=== PATIENT | female | born 1940 | race Hispanic/Latino ===

== ENCOUNTER 2017-01-18 17:41 | Emergency (ER) | payer MEDICARE ==
[2017-01-18 17:54] VITALS: BP 130/79
[2017-01-18] MEDS ORDERED: XOPENEX IH ONE (17:54)
[2017-01-18] MEDS ORDERED: DELTASONE PO ONE (17:54)
--- NOTE | 2017-01-18 17:57 | Emergency Department Report ---
- General Chief Complaint: Upper Respiratory Infection Stated Complaint: COUGH Time Seen by Provider: 01/18/17 17:57 Source: patient Mode of arrival: Ambulatory Limitations: No Limitations - History of Present Illness Initial Comments: Patient reports a dry cough that started two weeks ago with aggravation the last two nights while trying to sleep. Patient has tried OTC Mucinex-DM, however to no avail MD Complaint: cough Onset/Timin -: week(s) Severity: mild Severity scale (0 -10): 0 Quality: other (none) Consistency: constant Improves With: nothing Worsens With: deep breaths Context: other (none) Associated Symptoms: denies other symptoms, cough. denies: fever, chills, myalgias, diaphoresis, headache, rhinorrhea, nasal congestion, sore throat, stiff neck, chest pain, shortness of breath, abdominal pain, nausea, vomiting, diarrhea, dysuria, rash, confusion, right sweats, weight loss, epistaxis, hoarseness, ear pain Treatments Prior to Arrival: "cold medicine" - Related Data Previous Rx's Medication Instructions Recorded Last Taken Type Albuterol Sulfate [Ventolin HFA] 2 puff IH Q4H PRN #1 hfa.aer.ad 01/18/17 Unknown Rx guaiFENesin/CODEINE [Robitussin AC] 5 ml PO QHS PRN #100 oral.liqd 01/18/17 Unknown Rx predniSONE [Deltasone] 20 mg PO QDAY #5 tab 01/18/17 Unknown Rx Allergies Allergy/AdvReac Type Severity Reaction Status Date / Time No Known Allergies Allergy Unverified 01/18/17 17:44 ED Review of Systems ROS: Stated complaint: COUGH Other details as noted in HPI Constitutional: denies: chills, diaphoresis, fever, malaise, weakness ENT: denies: ear pain, throat pain Respiratory: cough. denies: orthopnea, shortness of breath, SOB with exertion, SOB at rest, stridor, wheezing Cardiovascular: denies: chest pain, palpitations, dyspnea on exertion, orthopnea , edema, syncope, paroxysmal nocturnal dyspnea Gastrointestinal: denies: abdominal pain, nausea, vomiting, diarrhea, constipation Musculoskeletal: denies: back pain, joint swelling, arthralgia Neurological: denies: headache, weakness, numbness, paresthesias Psychiatric: denies: anxiety, depression ED Past Medical Hx - Past Medical History Previous Medical History?: No Additional medical history: Hepatitis C from [id number], Hx. of bleeding ulcers and had a blood transfusion - Surgical History Past Surgical History?: Yes Additional Surgical History: Peng cataract surgery, Right facial/cheek bone surgery, Tonsilectomy, - Social History Smoking Status: Never Smoker Substance Use Type: Other - Medications Home Medications: Home Medications Medication Instructions Recorded Confirmed Last Taken Type Albuterol Sulfate [Ventolin HFA] 2 puff IH Q4H PRN #1 hfa.aer.ad 01/18/17 Unknown Rx guaiFENesin/CODEINE [Robitussin AC] 5 ml PO QHS PRN #100 oral.liqd 01/18/17 Unknown Rx predniSONE [Deltasone] 20 mg PO QDAY #5 tab 01/18/17 Unknown Rx ED Physical Exam - General Limitations: No Limitations General appearance: alert, in no apparent distress - Head Head exam: Present: atraumatic, normocephalic, normal inspection - Eye Eye exam: Present: normal appearance, PERRL, EOMI Pupils: Present: normal accommodation - ENT ENT exam: Present: normal exam, normal orophraynx, mucous membranes moist. Absent: mucous membranes dry - Neck Neck exam: Present: normal inspection, full ROM. Absent: tenderness, meningismus, lymphadenopathy, thyromegaly - Respiratory Respiratory exam: Present: wheezes. Absent: respiratory distress, rales, rhonchi, stridor, chest wall tenderness, accessory muscle use, decreased breath sounds, prolonged expiratory - Cardiovascular Cardiovascular Exam: Present: tachycardia, normal heart sounds. Absent: systolic murmur, diastolic murmur, rubs, gallop - Extremities Exam Extremities exam: Present: normal inspection, full ROM, normal capillary refill. Absent: tenderness, pedal edema, joint swelling, calf tenderness - Back Exam Back exam: Present: normal inspection, full ROM. Absent: tenderness, CVA tenderness (R), CVA tenderness (L), muscle spasm, paraspinal tenderness, vertebral tenderness - Neurological Exam Neurological exam: Present: alert, oriented X3, CN II-XII intact, normal gait, reflexes normal. Absent: motor sensory deficit - Psychiatric Psychiatric exam: Present: normal affect, normal mood - Skin Skin exam: Present: warm, dry, intact, normal color. Absent: rash ED Course Vital Signs 01/18/17 17:44 Temperature 98.8 F Pulse Rate 108 H Respiratory 18 Rate Blood Pressure 130/79 O2 Sat by Pulse 97 Oximetry - Reevaluation(s) Reevaluation #1: 01/18/17 18:02 nebulizer treatment, oral steroids and imaging study ordered ED Medical Decision Making - Lab Data Vital Signs 01/18/17 17:44 Temperature 98.8 F Pulse Rate 108 H Respiratory 18 Rate Blood Pressure 130/79 O2 Sat by Pulse 97 Oximetry - Radiology Data HISTORY: cough for two weeks TECHNIQUE: PA and lateral views of the chest PRIORS: None. FINDINGS: Lines, tubes, and devices: N/A Lungs and pleura: Trachea is normal in position. Lungs are clear of infiltrate, pleural effusion, vascular congestion, or pneumothorax. Cardiomediastinal silhouette: Cardiac and mediastinal silhouettes are unremarkable. Other: Bony structures are intact. IMPRESSION: No acute cardiopulmonary process seen. - Medical Decision Making During the course of ED, nebulizer, oral steroid and imaging study were ordered. The imaging study revealed normal cardiopulmonary process seen. Patient reports breathing muck better after nebulizer treatment. She was sent home with prescriptions for Ventolin HFA, prednisone and Robitussin AC, instructed to follow up with her PCP, she verbalized understanding - Differential Diagnosis Acute Bronchitis, Upper Resp Infection Critical care attestation.: If time is entered above; I have spent that time in minutes in the direct care of this critically ill patient, excluding procedure time. ED Disposition Clinical Impression: Bronchitis Disposition: DC-01 TO HOME OR SELFCARE Is pt being admited?: No Does the pt Need Aspirin: No Condition: Stable Instructions: Acute Bronchitis (ED) Additional Instructions: Take medication as directed. No drinking or driving while taking cough syrup. Follow up with your PCP in 2-3 days. Return back to the ED for worsening symptoms or concerns Prescriptions: guaiFENesin/CODEINE [Robitussin AC] 5 ml PO QHS PRN #100 oral.liqd PRN Reason: Cough Albuterol Sulfate [Ventolin HFA] 2 puff IH Q4H PRN #1 hfa.aer.ad PRN Reason: Shortness Of Breath predniSONE [Deltasone] 20 mg PO QDAY #5 tab Referrals: PRIMARY CARE, [Primary Care Provider] - 3-5 Days Time of Disposition: 18:42
--- NOTE | 2017-01-18 18:35 | XRay Report ---
FINAL REPORT EXAM: XR CHEST ROUTINE 2V HISTORY: cough for two weeks TECHNIQUE: PA and lateral views of the chest PRIORS: None. FINDINGS: Lines, tubes, and devices: N/A Lungs and pleura: Trachea is normal in position. Lungs are clear of infiltrate, pleural effusion, vascular congestion, or pneumothorax. Cardiomediastinal silhouette: Cardiac and mediastinal silhouettes are unremarkable. Other: Bony structures are intact. IMPRESSION: No acute cardiopulmonary process seen.
== END 2017-01-18 18:48 | disposition home or self-care (01) ==
LOC: ED 17:41
DX: J40 Bronchitis, not specified as acute or chronic (principal)
CPT/HCPCS: 71020; 99283; J7512